=== PATIENT | male | born 1980 | race Two or more races ===

== ENCOUNTER 2018-06-23 16:29 | Emergency (ER) | payer OTHER ==
[~2018-06-23] VITALS: Ht 157.5 cm; Wt 74.8 kg
[2018-06-23 16:50] VITALS: BP 179/92
[2018-06-23] MEDS ORDERED: IPRATRPIUM/ALBUTEROL 0.5/2.5MG 3 ML NEBU. NEB ONE (17:15)
[2018-06-23] MEDS ORDERED: predniSONE 10 MG TABLET PO ONE (17:15)
--- NOTE | 2018-06-23 17:18 | PHYS DOC ---
Past Medical History Past Medical History: No Pertinent History Past Surgical History: Other Additional Past Surgical Histo: knee surgery Alcohol Use: Rarely Drug Use: None Adult General Chief Complaint Chief Complaint: COUGH HPI HPI 38-year-old male presents to ER with complaints of cough for the past week. Patient denies any chest pain or chest tightness. Patient denies fever, sore throat, or ear ache. He denies exposure to others with resp. illness. He reports he has had some sinus congestion and feels sxs are r/t seasonal allergies. He reports he took a Claritin this morning with no relief in sxs. He denies CRAFT/dizziness. He denies sinus drainage. Pt reports he had some discomfort at site of umbilical hernia during coughing episodes this past wk- denies N/V/D or abd bloating/distention- he reports he had been able to reduce his hernia and currently is having no pain. Pt is daily smoker. Review of Systems Review of Systems Constitutional: Denies fever or chills. Denies fatigue Eyes: Denies redness, or eye pain [] HENT: Denies sore throat. Reports sinus congestion Respiratory: Denies shortness of breath. Reports prod. cough w/clear phlegm Cardiovascular: Denies CP/palpitations GI: Denies nausea, vomiting, bloody stools or diarrhea. Reports hx mid umbilical hernia which has been intermittently hurting this past wk- he reduced hernia himself at home and currently denies pain/abd distention : Denies urinary sxs Musculoskeletal: Denies back/neck pain or joint pain [] Integument: Denies rash or skin lesions [] Neurologic: Denies headache, focal weakness or sensory changes. Denies dizziness All other systems were reviewed and found to be within normal limits, except as documented in this note. Current Medications Current Medications Current Medications Medications (Trade) Dose Ordered Sig/Kimberly Start Time Stop Time Status Last Admin Dose Admin Albuterol/ Ipratropium (Duoneb) 3 ml 1X ONCE 06/23/18 17:15 06/23/18 17:16 DC 06/23/18 17:15 3 ML Prednisone (Prednisone) 50 mg 1X ONCE 06/23/18 17:15 06/23/18 17:16 DC 06/23/18 17:15 50 MG Allergies Allergies Allergies Coded Allergies Type Severity Reaction Last Updated Verified No Known Drug Allergies 09/26/13 No Physical Exam Physical Exam Constitutional: Well developed, well nourished, no acute distress, non-toxic appearance. Clear speech and speaking in full sentences HENT: Normocephalic, atraumatic, rt ear with mild erythema at TM without bulging /perforation- no purulent drainage, lt ear NL exam, oropharynx moist- no pharyngeal erythema/swelling, no oral exudates, nose normal. [] Eyes: Pupils equal, conjunctiva normal, no discharge. [] Neck: Normal range of motion, no tenderness, supple, no stridor/gross adenopathy. Trachea midline Cardiovascular: Heart rate regular rhythm, no murmur [] Lungs & Thorax: Rt upper lobe rhonchi- clear in lt upper lobe. Diminished air movement in bases. Resp. equal/nonlabored Abdomen: Bowel sounds normal, soft, no tenderness- small mid umbilical hernia- soft on palp. nontender , no masses, no pulsatile masses. [] Skin: Warm, dry, no erythema, no rash. [] Extremities: No tenderness, no cyanosis, no clubbing, ROM intact, no edema. [] Neurologic: Alert and oriented X 3, normal motor function, normal sensory function, no focal deficits noted. [] Psychologic: Affect normal, judgement normal, mood normal. [] Current Patient Data Vital Signs Vital Signs Date Time Temp Pulse Resp B/P (MAP) Pulse Ox O2 Delivery O2 Flow Rate FiO2 06/23/18 18:23 97 Room Air 06/23/18 16:50 99.0 96 16 179/92 (121) 99.0 EKG EKG [] Radiology/Procedures Radiology/Procedures [] Course & Med Decision Making Course & Med Decision Making Pertinent Imaging studies reviewed. (See chart for details) 1825: Patient was evaluated in the ER for complaints of an ongoing cough. Patient had chest x-ray obtained which was reviewed by Dr. Rinaldi with no obvious acute findings. This was discussed with patient. Patient had dose of prednisone and DuoNeb treatment while in the ER. On reevaluation patient is in no visible distress with equal nonlabored resp. Lung sounds are clear bilat. with increased air movement throughout all lung gutierrez. Patient states his breathing has improved following treatments received and he is comfortable with home discharge. He is denying any chest pain, chest tightness, or shortness of air. Will provide patient with prescription for albuterol inhaler as well as prednisone for him to start tomorrow. Education on medication provided. Will provide patient with general surgery referral information for further evaluation of umbilical hernia. He continues to deny any abdominal pain or nausea at this time. Smoking cessation was discussed.Education provided on signs and symptoms to return to ER. Discharge instructions were discussed. Patient to follow-up with primary care physician if symptoms persist or with any concerns. Dragon Disclaimer Dragon Disclaimer This electronic medical record was generated, in whole or in part, using a voice recognition dictation system. Departure Departure Impression: Primary Impression: Cough Disposition: HOME, SELF-CARE Condition: STABLE Referrals: NO PCP (PCP) PAT BOYKIN MD Patient Instructions: Cough, Adult, Smoking Cessation Additional Instructions: Drink plenty of fluids. Avoid smoking. Follow-up with your primary care physician if symptoms persist or with concerns. You are being provided with referral information for a general surgeon for further evaluation of your hernia. Scripts Albuterol Sulfate (Proair Hfa) 8.5 Gm Hfa.aer.ad 1 PUFF INH PRN Q6HRS PRN for COUGH, #1 INHALER 0 Refills Prov: SINAN ANDRES APRN 06/23/18 Prednisone (PREDNISONE) 50 Mg Tablet 1 TAB PO DAILY, #4 TAB 0 Refills Start on 06/24/18 Prov: SINAN ANDRES APRN 06/23/18 SINAN ANDRES APRN Jun 23, 2018 17:18
[2018-06-23] MEDS ORDERED: PRED50TA PO (18:44)
[2018-06-23] MEDS ORDERED: ALBU2.5V8 INH (18:44)
--- NOTE | 2018-06-24 07:57 | RAD ---
CHEST PA LATERAL History: ER PATIENT. PRODUCTIVE COUGH WITH WHITE SPUTUM X1 WEEK. PRIOR XRAY Comparison: 06/02/2012 two-view chest x-ray exam. Findings: The left costophrenic angle was not included on this exam limiting assessment. The cardiomediastinal silhouette is normal. Pulmonary vasculature is normal. The lungs are clear. No significant pleural effusion or pneumothorax is seen. There is no acute bone abnormality. IMPRESSION: No acute cardiopulmonary process. Limited exam. Electronically signed by: Pantera Pandey MD (06/24/2018 7:54 AM) [facility]
== END 2018-06-23 18:59 | disposition home or self-care (01) ==
LOC: ER 16:29
DX: R05 Cough (principal)
CPT/HCPCS: 71046; 94640; 99283; J7512; J7620

== ENCOUNTER 2021-06-25 16:54 | Emergency (ER) | payer OTHER ==
[~2021-06-25] VITALS: Ht 160 cm; Wt 75.9 kg
[~2021-06-25 16:54] MED LIST: ALBU2.5V8 INH; PRED50TA PO
[2021-06-25 17:00] VITALS: BP 150/91
[2021-06-25] MEDS ORDERED: ONDANSETRON PF 4 MG/2 ML VIAL. IVP ONE (18:15)
[2021-06-25] MEDS ORDERED: IV RINGERS,LACTATED 1000ML 1,000 ML IV ONE (18:15)
[2021-06-25 18:38] LABS: BASO # 0.1 x10^3/uL (0.0-0.2); BASO % 1 % (0-3); EOS # 0.2 x10^3/uL (0.0-0.7); EOS % 1 % (0-3); HEMATOCRIT 44.2 % (39.0-53.0); HEMOGLOBIN 15.1 g/dL (13.0-17.5); LYMPH # 2.9 x10^3/uL (1.0-4.8); LYMPH % 25 % (24-48); MEAN CORPUSCULAR HEMOGLOBIN 32 pg (25-35); MEAN CORPUSCULAR HGB CONC 34 g/dL (31-37); MEAN CORPUSCULAR VOLUME 93 fL (79-100); MONO # 0.9 x10^3/uL (0.0-1.1); MONO % 8 % (0-9); NEUT # 7.4 x10^3/uL (1.8-7.7); NEUT % 64 % (31-73); PLATELET COUNT 310 x10^3/uL (140-400); RED BLOOD COUNT 4.75 x10^6/uL (4.30-5.70); RED CELL DISTRIBUTION WIDTH 13.3 % (11.5-14.5); WHITE BLOOD COUNT 11.5 x10^3/uL (4.0-11.0)
[2021-06-25 18:49] LABS: CALCIUM 8.4 mg/dL (8.5-10.1); GFR 83.2; POTASSIUM 3.8 mmol/L (3.5-5.1)
[2021-06-25 18:55] LABS: ALBUMIN 3.8 g/dL (3.4-5.0); ALBUMIN/GLOBULIN RATIO 0.9 (1.0-1.7); MAGNESIUM 1.8 mg/dL (1.8-2.4); TOTAL BILIRUBIN 0.6 mg/dL (0.2-1.0); TOTAL PROTEIN 8.2 g/dL (6.4-8.2)
[2021-06-25 20:17] LABS: BACTERIA,URINE 0 /HPF (0-FEW); RBC,URINE 0 /HPF (0-2); WBC,URINE 0 /HPF (0-4)
[2021-06-25] MEDS ORDERED: ONDA4TAB12 PO (20:19)
--- NOTE | 2021-06-25 20:22 | PHYS DOC ---
Past Medical History Additional Past Medical Histor: UMBILICAL HERNIA Past Surgical History: Other Additional Past Surgical Histo: knee surgery Smoking Status: Current Every Day Smoker Alcohol Use: Occasionally Drug Use: None General Adult EDM: Chief Complaint: NAUSEA/VOMITING/DIARRHEA HPI: HPI: Patient is a 41 year old male who presents with nausea, vomiting, diarrhea and abdominal pain that began this morning. Patient states that last night, he was "out at the [place]," and he did have some alcoholic beverages. He states he did not get severely intoxicated or consume any new or undercooked foods. He did not get in the water or drink any of the [place] water. He states he has had 3 episodes of emesis and numerous episodes of diarrhea today. He reports a known umbilical hernia, which has been painful when he retches. Patient denies bloody emesis, bloody stools, dysuria, hematuria, fever, chills, generalized weakness, chronic alcohol use. Review of Systems: Review of Systems: Constitutional: Denies fever, chills or generalized weakness Eyes: Denies change in visual acuity, visual field deficits or discharge HENT: Denies ear pain, nasal congestion or sore throat Respiratory: Denies cough or shortness of breath Cardiovascular: Denies chest pain, palpitations or edema GI: See HPI : See HPI Musculoskeletal: Denies back pain or joint pain Integument: Denies rash or other skin lesion Neurologic: Denies headache, focal weakness or sensory changes Heart Score: C/O Chest Pain: No Current Medications: Current Medications Medications (Trade) Dose Ordered Sig/Kimberly Start Time Stop Time Status Last Admin Dose Admin Ondansetron HCl (Zofran) 4 mg 1X ONCE 06/25/21 18:15 06/25/21 18:18 DC 06/25/21 18:24 4 MG Ringer's Solution 1,000 ml @ 1,000 mls/hr 1X ONCE 06/25/21 18:15 06/25/21 19:14 DC 06/25/21 18:26 1,000 MLS/HR Allergies: Allergies: Allergies Coded Allergies Type Severity Reaction Last Updated Verified No Known Drug Allergies 09/26/13 No Physical Exam: PE: Constitutional: Well developed, well nourished, no acute distress, non-toxic appearance. HENT: Normocephalic, atraumatic, bilateral external ears normal, nose normal. Eyes: EOMI, conjunctiva normal, no discharge. Neck: Normal range of motion, no stridor. Abdomen: Bowel sounds normal, soft, mild tenderness without rebound or guarding, no pulsatile masses. Skin: Warm, dry, no erythema, no rash. Back: No tenderness, no CVA tenderness. Extremities: No tenderness, no cyanosis, no clubbing, ROM intact, no edema. Neurologic: Alert and oriented x4, normal motor function, normal sensory function, no focal deficits noted. Current Patient Data: Labs: Laboratory Tests Test 06/25/21 17:55 White Blood Count 11.5 x10^3/uL (4.0-11.0) H Red Blood Count 4.75 x10^6/uL (4.30-5.70) Hemoglobin 15.1 g/dL (13.0-17.5) Hematocrit 44.2 % (39.0-53.0) Mean Corpuscular Volume 93 fL (79-100) Mean Corpuscular Hemoglobin 32 pg (25-35) Mean Corpuscular Hemoglobin Concent 34 g/dL (31-37) Red Cell Distribution Width 13.3 % (11.5-14.5) Platelet Count 310 x10^3/uL (140-400) Neutrophils (%) (Auto) 64 % (31-73) Lymphocytes (%) (Auto) 25 % (24-48) Monocytes (%) (Auto) 8 % (0-9) Eosinophils (%) (Auto) 1 % (0-3) Basophils (%) (Auto) 1 % (0-3) Neutrophils # (Auto) 7.4 x10^3/uL (1.8-7.7) Lymphocytes # (Auto) 2.9 x10^3/uL (1.0-4.8) Monocytes # (Auto) 0.9 x10^3/uL (0.0-1.1) Eosinophils # (Auto) 0.2 x10^3/uL (0.0-0.7) Basophils # (Auto) 0.1 x10^3/uL (0.0-0.2) Sodium Level 143 mmol/L (136-145) Potassium Level 3.8 mmol/L (3.5-5.1) Chloride Level 106 mmol/L (98-107) Carbon Dioxide Level 22 mmol/L (21-32) Anion Gap 15 (6-14) H Blood Urea Nitrogen 8 mg/dL (8-26) Creatinine 1.0 mg/dL (0.7-1.3) Estimated GFR (Cockcroft-Gault) 83.2 BUN/Creatinine Ratio 8 (6-20) Glucose Level 108 mg/dL (70-99) H Calcium Level 8.4 mg/dL (8.5-10.1) L Magnesium Level 1.8 mg/dL (1.8-2.4) Total Bilirubin 0.6 mg/dL (0.2-1.0) Aspartate Amino Transferase (AST) 176 U/L (15-37) H Alanine Aminotransferase (ALT) 102 U/L (16-63) H Alkaline Phosphatase 146 U/L (46-116) H Total Protein 8.2 g/dL (6.4-8.2) Albumin 3.8 g/dL (3.4-5.0) Albumin/Globulin Ratio 0.9 (1.0-1.7) L Lipase 185 U/L (73-393) Laboratory Tests 06/25/21 17:55 Laboratory Tests 06/25/21 17:55 Vital Signs: Vital Signs Date Time Temp Pulse Resp B/P (MAP) Pulse Ox O2 Delivery O2 Flow Rate FiO2 06/25/21 17:00 98.8 18 18 150/91 (110) 98 Room Air 98.8 Course & Med Decision Making: Course & Med Decision Making Pertinent Labs and Imaging studies reviewed. (See chart for details) Patient is a 41-year-old male with 1 day history of abdominal pain and NVD. Work-up today will consist of labs, urinalysis. Patient was provided with IV Zofran and IV fluid replacement. Work-up today is unremarkable. Patient is instructed to adhere to a liquid diet until he can tolerate to brat and then normal diet. Return precautions were provided. Patient understands and is agreeable to discharge plan. Paul Disclaimer: Paul Disclaimer: This electronic medical record was generated, in whole or in part, using a voice recognition dictation system. Departure Departure Impression: Primary Impression: Gastroenteritis Additional Impressions: Umbilical hernia Qualified Codes: K42.9 - Umbilical hernia without obstruction or gangrene Elevated blood pressure reading Disposition: HOME / SELF CARE / HOMELESS Condition: STABLE Referrals: NO PCP (PCP) Patient Instructions: Viral Gastroenteritis, [id number] Additional Instructions: EMERGENCY DEPARTMENT GENERAL DISCHARGE INSTRUCTIONS Thank you for coming to [facility] Emergency Department (ED) today and trusting us with you care. We trust that you had a positive experience in our Emergency Department. If you wish to speak to the department management, you may call the director at . YOUR FOLLOW UP INSTRUCTIONS ARE FOLLOWS: 1. Follow up with your primary care doctor. If you do not have a primary doctor, please ask for a resource list of physicians or clinics that may be able to assist you with follow up care. 2. The emergency provider has interpreted your imaging studies, if any were ordered. The radiology leasing specialist also reviewed them. If there is a change in the findings, you will be notified in 48 hours when at all possible. 3. If a lab test or culture has been done, your results will be reviewed and you will be notified if you need a change in treatment. 4. Follow instructions verbalized to you and refer to the printouts if needed. ADDITIONAL INSTRUCTIONS AND INFORMATION: 1. Your care today has been supervised by a physician who is specially trained in emergency care. Many problems require more than one evaluation for a complete diagnosis and treatment. We recommend that you schedule your follow up appointment as recommended to ensure complete treatment of you illness or injury. If you are unable to obtain follow up care and continue to have a pr oblem, or if your condition worsens, we recommend that you return to the ED. 2. We are not able to safely determine your condition over the phone nor are we able to give sound medical advice over the phone. For these safety reasons, if you call for medical advice we will ask you to come to the ED for further evaluation. 3. If you have any questions regarding these discharge instructions please call the ED at . SAFETY INFORMATION: In the interest of safety, wellness, and injury prevention; we encourage you to wear your seat belt, if you smoke; quite smoking, and we encourage family to use a protective helmet for bicycling and other sporting events that present an increased risk for head injury. IF YOUR SYMPTOMS WORSEN OR NEW SYMPTOMS DEVELOP, OR YOU HAVE CONCERNS ABOUT YOUR CONDITION; OR IF YOUR CONDITION WORSENS WHILE YOU ARE WAITING FOR YOUR FOLLOW UP APPOINTMENT; EITHER CONTACT YOUR PRIMARY CARE DOCTOR, THE PHYSICIAN WHOSE NAME AND NUMBER YOU WERE GIVEN, OR RETURN TO THE ED IMMEDIATELY. Scripts Ondansetron (ONDANSETRON ODT) 4 Mg Tab.rapdis 1 TAB PO PRN Q6-8HRS, #20 TAB Prov: MARIELENA WASHBURN 06/25/21 MARIELENA WASHBURN Jun 25, 2021 20:22
== END 2021-06-25 20:35 | disposition home or self-care (01) ==
LOC: ER 16:54
DX: K52.9 Noninfective gastroenteritis and colitis, unspecified (principal); K42.9 Umbilical hernia without obstruction or gangrene; R03.0 Elevated blood-pressure reading, without diagnosis of hypertension; F17.200 Nicotine dependence, unspecified, uncomplicated
CPT/HCPCS: 36415; 80053; 81001; 83690; 83735; 85025; 96361; 96374; 99283; J2405; J7120